=== PATIENT | male | born 1960 | race Caucasian/White ===

== ENCOUNTER 2018-04-19 12:18 | Day surgery (SDC) | payer BC ==
[2018-04-19] MEDS ORDERED: LIDOCAINE 2% (SDV) 5 ML INJ (14:43)
[2018-04-19] MEDS ORDERED: PROPOFOL 40 ML (14:43)
== END 2018-04-19 16:53 | disposition home or self-care (01) ==
LOC: GIL 12:18
DX: K29.70 Gastritis, unspecified, without bleeding (principal); K21.0 Gastro-esophageal reflux disease with esophagitis; E66.9 Obesity, unspecified; Z68.31 Body mass index [BMI] 31.0-31.9, adult
CPT/HCPCS: 43239; 88305; 88312; 88313